=== PATIENT | female | born 1960 | race Caucasian/White ===

== ENCOUNTER 2017-06-24 08:06 | Emergency (ER) | payer MEDICAID ==
[~2017-06-24] VITALS: Ht 154.9 cm; Wt 81.8 kg
[2017-06-24] MEDS ORDERED: CYCLOBENZAPRINE HCL 10 MG TABLET PO ONE (09:30)
[2017-06-24 10:20] LABS: GLUCOSE, URINE (UA) NEGATIVE (NEGATIVE); KETONES,URINE NEGATIVE (NEGATIVE); LEUKOCYTE ESTERASE ,URINE NEGATIVE (NEGATIVE); OCCULT BLOOD,URINE NEGATIVE (NEGATIVE); PH,URINE 7.5 (5.0-8.0); PROTEIN,URINE NEGATIVE (NEGATIVE)
[2017-06-24 10:30] LABS: APPEARANCE,URINE CLEAR (CLEAR)
[2017-06-24 10:31] LABS: ADD UA MICROSCOPIC NO
[2017-06-24 11:01] VITALS: BP 152/88
== END 2017-06-24 11:02 | disposition home or self-care (01) ==
LOC: EMS 08:08
DX: S39.012A Strain of muscle, fascia and tendon of lower back, initial encounter (principal); I10 Essential (primary) hypertension; X58.XXXA Exposure to other specified factors, initial encounter; Y93.89 Activity, other specified; Y92.89 Other specified places as the place of occurrence of the external cause; Y99.8 Other external cause status
CPT/HCPCS: 72100; 99285